=== PATIENT | female | born 1955 | race Caucasian/White ===

== ENCOUNTER → 2017-05-21 | Outpatient (CLI) | payer OTHER ==
[~2017-05-21] MED LIST: ASCO100083 PO; CALC-654 PO; CHOL100045 PO; CHOL200018 PO; CYAN100053 IJ; ESTR10TA VG; FLUO20CA25 PO; LEVO500T2 PO; LUTE20CA2 PO; MELO15TA39 PO; METO25TA PO; MULT-178 PO; MULT-904 PO; NITR-68 PO; OMEP20CA12 PO; OXYC-197 PO; PHEN-640 PO; TAMS0.4C98 PO
--- NOTE | 2017-05-22 12:22 | Diagnostic Imaging Report ---
INDICATION: Digital mammogram bilateral screening. This study was compared to the prior exams of 05/01/16, 04/11/15 and 04/29/14. At this time, there are no current complaints. The current study was also evaluated with a Computer Aided Detection (CAD) system. FINDINGS: The fibroglandular tissue in both breasts is heterogeneously dense. This does limit the sensitivity of this exam. Overall, there does not appear to have been any significant change when compared to the prior study. No primary or secondary sign of malignancy is noted. IMPRESSION: There is no radiographic evidence for malignancy. ACR BI-RADS Category 1: Negative. Result letter will be mailed to the patient. Note: At least 10% of breast cancer is not imaged by mammography. Dictated by: Dictated on workstation # [id number]
== END ==
LOC: RAD 11:26
PROVIDERS: ATTEND Nurse Practitioner
DX: Z12.31 Encounter for screening mammogram for malignant neoplasm of breast (principal)
CPT/HCPCS: 77067

== ENCOUNTER → 2017-10-01 | Outpatient (CLI) | payer OTHER ==
--- NOTE | 2017-10-01 15:27 | Diagnostic Imaging Report ---
PROCEDURE: CT sinuses without contrast TECHNIQUE: Multiple contiguous axial images were obtained through the sinuses without the use of intravenous contrast. Coronal and sagittal reformations were then performed. INDICATION: Questionable mass in the left maxilla. FINDINGS: Frontal sinus is clear. Ethmoid air cells and sphenoid sinus are clear. Bilateral maxillary sinuses are clear. No mucosal thickening, mass or air-fluid level is detected. Mastoids are well aerated. Ostiomeatal complexes are patent bilaterally. There is mild nasal septal deviation to the right. IMPRESSION: Essentially unremarkable CT of the paranasal sinuses. There is no evidence of paranasal sinus mucosal disease, sinusitis or paranasal sinus mass. Dictated by: Dictated on workstation # [id number]
== END ==
LOC: RAD 14:42
PROVIDERS: ATTEND Otolaryngology Otolaryngology/Facial Plastic Surgery
DX: J34.89 Other specified disorders of nose and nasal sinuses (principal)
CPT/HCPCS: 70486

== ENCOUNTER → 2018-04-22 | Outpatient (CLI) | payer OTHER ==
[~2018-04-22] MED LIST changes: +IOHEXOL 350 MG/ML 100 ML (OMNIPAQUE 350) VIAL IV ONE; +NS 100 ML (IVPB) BAG IV ONE; -OXYC-197 PO; +OXYC1TAB87 PO; +RECEIVED CONTRAST (Hold Metformin) IV SCH
--- NOTE | 2018-04-22 13:27 | Diagnostic Imaging Report ---
PROCEDURE: CT head with and without contrast. TECHNIQUE: Multiple contiguous axial images were obtained through the brain before and after the administration of intravenous contrast. INDICATION: Headache COMPARISON: There are no previous CT of the head examinations available for comparison. The CT sinus exam of 10/01/2017 failed to show any sign of active sinus disease. FINDINGS: There is no mass, shift of the midline or hemorrhage to suggest an acute intracranial abnormality. The normal tentorial blush is evident. There is no abnormal enhancement on the postcontrast series to indicate a neoplastic or infectious process. There is no sign of an aneurysm of the [place] of [place]. The ventricles are prominent but not abnormally dilated. The size of ventricles may be due to the underlying cortical atrophy. The degree of atrophy is consistent with the patient's age. There are also vague areas of low density in the periventricular white matter bilaterally. These findings are nonspecific but may be secondary to encephalomalacia from microvascular ischemia. The bone windows show no evidence for a fracture or for a destructive lesion. The orbits and sinuses were not visualized in their entirety. Where visualized, there is no acute abnormality. IMPRESSION: 1. There is no evidence for an acute intracranial abnormality. 2. There is no abnormal enhancement of the postcontrast series to indicate a neoplastic or infectious process. 3. If clinical concern regarding an underlying abnormality persists and further imaging is desired, then MRI would be recommended. Dictated by: Dictated on workstation # [id number]
== END ==
LOC: RAD 11:35
PROVIDERS: ATTEND Nurse Practitioner Community Health
DX: R51 Headache (principal)
CPT/HCPCS: 70470

== ENCOUNTER → 2018-07-28 | Outpatient (CLI) | payer OTHER ==
[~2018-07-28] MED LIST changes: -IOHEXOL 350 MG/ML 100 ML (OMNIPAQUE 350) VIAL IV ONE; -NS 100 ML (IVPB) BAG IV ONE; -RECEIVED CONTRAST (Hold Metformin) IV SCH
--- NOTE | 2018-07-28 11:57 | Diagnostic Imaging Report ---
INDICATION: Pelvic pain and bloating. TECHNIQUE: Multiple Real-time grayscale images were obtained of the pelvis in various projections both transabdominally and endovaginally. FINDINGS: The uterus measures 4.3 x 2.8 x 1.4 cm. The endometrial thickness is 2 mm. There are no myometrial or endometrial masses. Both ovaries are obscured by bowel gas. There are no adnexal masses. There is no free pelvic fluid. IMPRESSION: Essentially unremarkable pelvic ultrasound. Dictated by: Dictated on workstation # [id number]
--- NOTE | 2018-07-28 12:48 | Diagnostic Imaging Report ---
INDICATION: Routine screening. Comparison is made with prior mammogram from 05/21/2017 and 05/01/2016. 2-D and 3-D bilateral screening mammography was performed with a Computer Aided Detection (CAD) system. FINDINGS: Both breasts remain heterogeneously dense, limiting the sensitivity of mammography. The parenchymal pattern is stable. No dominant mass or malignant appearing microcalcifications are seen. The axillae are unremarkable. IMPRESSION: No mammographic features suspicious for malignancy are identified. ACR BI-RADS Category 1: Negative. Result letter will be mailed to the patient. Note: At least 10% of breast cancer is not imaged by mammography. Dictated by: Dictated on workstation # [id number]
== END ==
LOC: RAD 10:07
PROVIDERS: ATTEND Nurse Practitioner
DX: Z12.31 Encounter for screening mammogram for malignant neoplasm of breast (principal); R10.2 Pelvic and perineal pain; R14.0 Abdominal distension (gaseous)
CPT/HCPCS: 76830; 76856; 77067

== ENCOUNTER → 2019-09-14 | Outpatient (CLI) | payer OTHER ==
[~2019-09-14] MED LIST changes: -TAMS0.4C98 PO; +TMSL.4C PO
--- NOTE | 2019-09-15 09:10 | Diagnostic Imaging Report ---
EXAMINATION: Bilateral screening mammogram with CAD. INDICATION: Screening. COMPARISON: This study is compared to the prior exams of 07/28/2018, 05/21/2017, and 05/01/2016. PERSONAL HISTORY: At this time, there are no current complaints. FINDINGS: The fibroglandular tissue in both breasts is heterogeneously dense. This does limit the sensitivity of this exam. On the craniocaudad view of the right breast in the mid lateral aspect of the breast at middle depth, there is a 4 mm area of increased density. There is no corresponding abnormality seen on the MLO view but this finding does seem to persist on the tomographic images (.). This density is most likely due to fibroglandular tissue. Even so, I would recommend that a compression of this area be obtained in the CC projection as well as a true lateral view of the right breast for further study. If this density persists on additional mammographic views, then ultrasound may be necessary as well. The left breast is unchanged. IMPRESSION: Additional mammographic views of the right breast would be recommended for further study. Ultrasound may also be necessary. ACR BI-RADS Category 0: Incomplete. (Needs additional imaging evaluation). Result letter will be mailed to the patient. Note: At least 10% of breast cancer is not imaged by mammography. Dictated by: Dictated on workstation # [id number]
== END ==
LOC: RAD 15:19
PROVIDERS: ATTEND Surgery
DX: Z12.31 Encounter for screening mammogram for malignant neoplasm of breast (principal); R92.8 Other abnormal and inconclusive findings on diagnostic imaging of breast
CPT/HCPCS: 77063; 77067

== ENCOUNTER → 2019-09-23 | Outpatient (CLI) | payer OTHER ==
--- NOTE | 2019-09-23 20:42 | Diagnostic Imaging Report ---
INDICATION: Right breast density. Patient presents for additional views. COMPARISON: Correlation is made with prior mammogram from 09/14/2019. EXAMINATION: Unilateral right 2D and 3D diagnostic mammography was performed with CAD. This included spot compression CC, rolled CC and conventional 90 degree lateral views. The current study was also evaluated with a Computer Aided Detection (CAD) system. FINDINGS: The density noted in the outer aspect of the right breast mid depth appears to show normal dispersion with additional views consistent with superimposed tissue. No mass is detected. No suspicious microcalcifications are identified. IMPRESSION: Additional views fail to demonstrate a discrete mass. The patient may return to routine annual screening mammography. ACR BI-RADS Category 1: Negative. Result letter will be mailed to the patient. Note: At least 10% of breast cancer is not imaged by mammography. Dictated by: Dictated on workstation # [id number]
== END ==
LOC: RAD 13:14
PROVIDERS: ATTEND Nurse Practitioner
DX: R92.8 Other abnormal and inconclusive findings on diagnostic imaging of breast (principal)

== ENCOUNTER → 2020-09-20 | Outpatient (CLI) | payer OTHER ==
--- NOTE | 2020-09-21 09:10 | Diagnostic Imaging Report ---
INDICATION: Routine screening. Comparison is made with prior mammogram from 09/14/2019 and 07/28/2018. 2-D and 3-D bilateral screening mammography was performed CAD. Both breasts are heterogeneously dense, limiting the sensitivity of mammography. The parenchymal pattern is stable. No mass or malignant appearing microcalcifications are seen. Axillae are unremarkable. IMPRESSION: BI-RADS Category 1 No mammographic features suspicious for malignancy are identified. ACR BI-RADS Category 1: Negative. Result letter will be mailed to the patient. Note: At least 10% of breast cancer is not imaged by mammography. Dictated by: Dictated on workstation # [id number]
== END ==
LOC: RAD 11:06
PROVIDERS: ATTEND Surgery
DX: Z12.31 Encounter for screening mammogram for malignant neoplasm of breast (principal)
CPT/HCPCS: 77063; 77067

== ENCOUNTER → 2021-02-22 | Outpatient (CLI) | payer OTHER | LOC: CARD 09:00 | PROVIDERS: ATTEND Internal Medicine Cardiovascular Disease | DX: I35.1 Nonrheumatic aortic (valve) insufficiency (principal); I35.8 Other nonrheumatic aortic valve disorders; I47.1 Supraventricular tachycardia | CPT/HCPCS: 93306 ==

== ENCOUNTER → 2021-06-08 | Outpatient (CLI) | payer OTHER ==
--- NOTE | 2021-06-08 12:30 | Diagnostic Imaging Report ---
PROCEDURE: MR imaging cervical spine without contrast. TECHNIQUE: Multiplanar, multisequence MR imaging of the cervical spine was performed without contrast. INDICATION: Left arm pain. COMPARISON: No prior studies are available for comparison. FINDINGS: Curvature and alignment of the cervical spine is normal. Vertebral body marrow signal is normal. No geographic marrow lesion is seen. There is some generalized cervical degenerative disc disease with variable disc space narrowing and desiccation, greatest at C3-C4, C4-C5, C5-C6, and C6-C7 levels. The cervical spinal cord shows normal homogeneous signal intensity and normal morphology. Craniocervical junction is unremarkable. C2-C3: No central canal or neural foraminal narrowing is detected. C3-C4: Endplate osteophytes indent the ventral thecal sac. Uncovertebral joint degenerative change does result in moderate bilateral neural foraminal narrowing. C4-C5: Uncovertebral joint degenerative change narrows the neural foramina bilaterally. There are also endplate osteophytes producing [id number] central canal narrowing. C5-C6: Prominent uncovertebral joint degenerative change results in moderate bilateral neural foraminal narrowing. Endplate osteophytes indent the ventral thecal sac and produce [id number] central canal narrowing. C6-C7: Uncovertebral joint degenerative change, particularly on the left side results in significant left neural foraminal narrowing. There is mild right neural foraminal narrowing. No significant central canal narrowing is seen. C7-T1: No significant central canal or neural foraminal narrowing is detected. Paraspinous tissues are unremarkable. IMPRESSION: Multilevel cervical spondylosis with multilevel central canal and neural foraminal narrowing described level by level above. Dictated by: Dictated on workstation # [id number]
== END ==
LOC: RAD 10:15
PROVIDERS: ATTEND Nurse Practitioner
DX: M47.812 Spondylosis without myelopathy or radiculopathy, cervical region (principal); M50.323 Other cervical disc degeneration at C6-C7 level; M48.02 Spinal stenosis, cervical region
CPT/HCPCS: 72141

== ENCOUNTER → 2021-11-06 | Outpatient (CLI) | payer OTHER ==
--- NOTE | 2021-11-06 17:09 | Diagnostic Imaging Report ---
INDICATION: Routine screening. COMPARISON: 09/20/2020 and 09/14/2019. TECHNIQUE: 2D and 3D bilateral screening mammography was performed with CAD. FINDINGS: Both breasts are heterogeneously dense, limiting the sensitivity of mammography. No mass or malignant-appearing microcalcifications are identified. The axillae are unremarkable. IMPRESSION: No mammographic features suspicious for malignancy are identified. ACR BI-RADS Category 1: Negative. Result letter will be mailed to the patient. Note: At least 10% of breast cancer is not imaged by mammography. Dictated by: Dictated on workstation # [id number]
== END ==
LOC: RAD 12:15
PROVIDERS: ATTEND Surgery
DX: Z12.31 Encounter for screening mammogram for malignant neoplasm of breast (principal)
CPT/HCPCS: 77063; 77067

== ENCOUNTER → 2022-03-12 | Outpatient (CLI) | payer OTHER | LOC: CARD 11:07 | PROVIDERS: ATTEND Internal Medicine Cardiovascular Disease | DX: I35.1 Nonrheumatic aortic (valve) insufficiency (principal) | CPT/HCPCS: 93306 ==

== ENCOUNTER → 2022-12-06 | Outpatient (CLI) | payer MEDICARE, OTHER ==
--- NOTE | 2022-12-06 13:42 | Diagnostic Imaging Report ---
Bilateral digital 2-D and 3-D screening with CAD. The current study was also evaluated with a Computer Aided Detection (CAD) system. COMPARISON: 10/31 09/29 and 09/2019 FINDINGS: density 2 No breast mass, spiculated lesion, architectural distortion, suspicious calcifications or findings to suggest development of malignancy. IMPRESSION: BI-RADS Category 1 ACR BI-RADS Category 1: Negative. Result letter will be mailed to the patient. Note: At least 10% of breast cancer is not imaged by mammography. Dictated by: Dictated on workstation # [id number]
== END ==
LOC: RAD 10:02
PROVIDERS: ATTEND Nurse Practitioner
DX: Z12.31 Encounter for screening mammogram for malignant neoplasm of breast (principal)
CPT/HCPCS: 77063; 77067

== ENCOUNTER 2023-04-09 05:54 | Outpatient (CLI) | payer MEDICARE, OTHER ==
[~2023-04-09] VITALS: Ht 167.7 cm; Wt 67.3 kg
[2023-04-10] MEDS ORDERED: ESTR1TAB24 PO (12:28)
[2023-04-10] MEDS ORDERED: CARI1.5C PO (12:28)
[2023-04-10] MEDS ORDERED: ZOLP5TAB PO (12:28)
[2023-04-10] MEDS ORDERED: MTP25TSR PO (12:28)
== END 2023-04-10 12:37 | disposition home or self-care (01) ==
LOC: PREOP 05:54
PROVIDERS: ATTEND Internal Medicine
DX: Z01.818 Encounter for other preprocedural examination (principal)

== ENCOUNTER 2023-04-18 08:53 | Day surgery (SDC) | payer MEDICARE, OTHER ==
--- NOTE | 2023-04-08 08:31 | HISTORY AND PHYSICAL ---
DATE OF SERVICE: 04/18/2023 COLONOSCOPY HISTORY AND PHYSICAL HISTORY OF PRESENT ILLNESS: The patient is a 67-year-old white female referred by GLENNA Montano for screening colonoscopy. I performed her last colonoscopy 10 years ago, at which time she had no evidence for neoplasia. She reports that she has been feeling well. Denies abdominal pain, change in bowel habit, bright red blood per rectum or melena. FAMILY HISTORY: Continues to be negative for colon cancer. She also denies any other history of GI tract malignancy. SOCIAL HISTORY: She is retired with no past smoking history and no significant alcohol intake reported. PAST MEDICAL HISTORY: Significant for distant past history of PSVT. No recurrences. No reported hypertension, coronary or pulmonary disease with past history of depression and intention reported headaches. PAST SURGICAL HISTORY: She had an appendectomy around 22 years ago and laparoscopic cholecystectomy over 15 years ago. REVIEW OF SYSTEMS: CONSTITUTIONAL: Denies night sweats, chills, fever, change in weight. GASTROINTESTINAL: As noted in HPI. PULMONARY: Denies cough, wheezing or shortness of breath. CARDIOVASCULAR: Has had no heart racing symptoms, palpitations, chest pain or dyspnea on exertion. GASTROINTESTINAL: As noted in the HPI. PHYSICAL EXAMINATION: GENERAL: Reveals a well-appearing white female in no acute distress. VITAL SIGNS: Blood pressure 132/80, weight 148 pounds. HEENT: Unremarkable. Sclerae nonicteric. CHEST: Clear to auscultation. CARDIOVASCULAR: Reveals regular rate and rhythm without murmur, S3 or S4. ABDOMEN: Soft, supple without mass, organomegaly, or tenderness. EXTREMITIES: Revealed no cyanosis, clubbing or edema. ASSESSMENT AND PLAN: The patient is being set up for screening colonoscopy, deemed to be of average risk. Prep instructions were given and questions were answered. I thank you for the referral of this pleasant lady. Job ID: [id number] DocumentID: [id number] Dictated Date: 04/02/2023 16:53:19 Sql Programmer Date: 04/02/2023 17:42:00 Dictated By: ANGELA VELAZQUEZ MD
[~2023-04-18] VITALS: Ht 167.7 cm; Wt 67.3 kg
[~2023-04-18 08:53] MED LIST changes: +CARI1.5C PO; +ESTR1TAB24 PO; +MTP25TSR PO; +ZOLP5TAB PO
[2023-04-18] MEDS ORDERED: LACTATED RINGERS 1,000 ML 1,000 ML IV STA (09:06)
--- NOTE | 2023-04-18 09:31 | Pre-Op Note & Conscious Sedat ---
Pre-Operative Progress Note Date H&P Reviewed: Apr 18, 2023 Time H&P Reviewed: 09:31 History & Physical: H&P Reviewed, Patient Examed, No changes noted Pre-Op Diagnosis: screening Moderate Sedation PreProcedure ASA Score 2 Airway Lungs Heart ASA score ASA 1: a normal healthy patient ASA 2: a patient with a mild systemic disease (mid diabetes, controlled hypertension, obesity ASA 3: a patient with a severe systemic disease that limits activity (angina, COPD, prior Myocardial infarction) ASA 4: a patient with an incapacitating disease that is a constant threat to life (CHF, renal failure) ASA 5: a moribund patient not expected to survive 24 hrs. (ruptured aneurysm) ASA 6: a declared brain- patient whose organs are being harvested. For emergent operations, add the letter E after the classification Mallampati Classification Grade 2 Sedation Plan Analgesia, Amnesia, Plan communicated to team members, Discussed options with patient/fam, Discussed risks with patient/fam The patient is an appropriate candidate to undergo the planned procedure, sedation, and anesthesia. The patient immediately re-assessed prior to indication. ANGELA VELAZQUEZ MD Apr 18, 2023 09:31
[2023-04-18 09:55] VITALS: BP 144/74
[2023-04-18 10:55] VITALS: BP 137/64
[2023-04-18 11:00] VITALS: BP 131/61
--- NOTE | 2023-04-18 11:01 | Progress Note-Post Operative ---
Post-Procedure Note Physician (s)/[employer] Nurse (s) Physician ANGELA VELAZQUEZ MD Pre-Procedure Diagnosis Pre-Procedure Diagnosis: screening Post-Procedure Diagnosis Post-operative diagnosis: Prior to undergoing colonoscopy digital rectal evaluation was performed. The anal sphincter tone was normal and the perianal reflexes intact. No abnormalities noted on visual inspection of the anal canal or distal rectal vault. The colonoscope was then inserted into the rectum and under direct visualization advanced to the cecum. The cecum was identified by identification of the ileocecal valve and cecal strap. Photographic documentation was obtained. A careful inspection was made as the colonoscope was withdrawn. Quality prep was fair there was some semisolid stool obscuring a very small amount of the ascending colon. Findings: There was 1 grade 1 internal hemorrhoid complex noted. Otherwise the rectum sigmoid colon descending colon splenic flexure transverse colon hepatic flexure ascending colon and cecum were unremarkable with no evidence for neoplasia or diverticular disease. A/P 1. 1 small grade 1 internal hemorrhoid complex was noted with otherwise normal colonoscopy to the cecum. Would advocate consideration for repeat screening colonoscopy in 10 years. I thank you for the [place] pleasant lady sincerely Angela Velazquez MD. CC: MD CAROLINE Diamond MARK D MD Apr 18, 2023 11:01
--- NOTE | 2023-04-18 11:04 | Anesthesia-General Post-Op ---
MAC Patient Condition Mental Status/LOC: Same as Preop Cardiovascular: Satisfactory Nausea/Vomiting: Absent Respiratory: Satisfactory Pain: Controlled Complications: Absent Post Op Complications Complications None Follow Up Care/Instructions Patient Instructions None needed. Anesthesiology Discharge Order Discharge Order Patient is doing well, no complaints, stable vital signs, no apparent adverse anesthesia problems. No complications reported per nursing. IJEOMA MADRIGAL CRNA Apr 18, 2023 11:04
[2023-04-18 11:35] VITALS: BP 131/61
== END 2023-04-18 11:35 | disposition home or self-care (01) ==
LOC: ENDO 08:53
PROVIDERS: ATTEND Internal Medicine
DX: Z12.11 Encounter for screening for malignant neoplasm of colon (principal); K64.0 First degree hemorrhoids